=== PATIENT | male | born 1950 | race Caucasian/White ===

== ENCOUNTER 2016-07-28 06:17 | Day surgery (SDC) | payer BC ==
[2016-07-25 14:49] VITALS: BMI 28.5
[2016-07-28 06:47] LABS: URINE APPEARANCE CLEAR; URINE BILIRUBIN NEGATIVE (NEGATIVE); URINE BLOOD NEGATIVE (NEGATIVE); URINE COLOR LTYELLOW; URINE GLUCOSE (UA) NEGATIVE (NEGATIVE); URINE KETONE NEGATIVE (NEGATIVE); URINE LEUK ESTERASE NEGATIVE (NEGATIVE); URINE NITRITE NEGATIVE (NEGATIVE); URINE PROTEIN NEGATIVE (NEGATIVE); URINE UROBILINOGEN NEGATIVE E.U./dl (0.2-1.0)
[2016-07-28 06:54] LABS: INR 1.05 (0.82-1.09); PROTHROMBIN TIME (PATIENT) 11.6 SEC (9.98-11.88)
[2016-07-28] MEDS ORDERED: ROPIVACAINE HCL 0.5% 30ML VIAL ONE (07:28)
[2016-07-28] MEDS ORDERED: MIDAZOLAM HCL 2 MG/2 ML SINGLE DOSE VIAL ONE ×2 (07:30)
[2016-07-28] MEDS ORDERED: PROPOFOL 20 ML ONE ×2 (07:45)
[2016-07-28] MEDS ORDERED: SUCCINYLCHOLINE CHLORIDE 200 MG/10 ML VIAL ONE (07:45)
[2016-07-28] MEDS ORDERED: ROCURONIUM BROMIDE 50 MG/5 ML VIAL ONE (07:45)
[2016-07-28] MEDS ORDERED: LIDOCAINE HCL/PF 2% SDV 5ML VIAL ONE (07:47)
[2016-07-28] MEDS ORDERED: ceFAZolin SODIUM 1 GM VIAL ONE ×2 (07:47→08:57)
--- NOTE | 2016-07-28 08:02 | HP ---
Satellite [facility] - Chief Complaint Chief Complaint: right shoulder pain - Past Medical History Allergies/Adverse Reactions: Allergies Allergy/AdvReac Type Severity Reaction Status Date / Time No Known Drug Allergies Allergy Verified 07/28/16 06:58 - Current Medications Current Medications: Home Medications Medication Instructions Recorded Meloxicam [Mobic -] 15 mg PO DAILY 10/04/13 Multivit-Min/FA/Lycopene/Lut 1 each PO DAILY 10/04/13 [Centrum Silver Tablet] Psyllium Seed [Metamucil] 660 gm PO DAILY 10/04/13 Lisinopril 10 mg PO DAILY 07/25/16 Omeprazole 20 mg PO DAILY 07/25/16 Satellite Physical Exam - Physical Examination Vital Signs: Vital Signs Period Temp Pulse Resp BP Sys/[place]ves Pulse Ox Last 24 Hr 97.4 F 63 18 149/86 98 General Appearance: Well Nourished, Well Developed, Alert & Oriented x3 ENT: Clear Lung: Normal air movement Heart: Regular rate & rhythm Extremities: Other (right shoulder- + ttp, decr rom, + neer, + seo, + empty can, nvi MRI + rct) Neurological: Intact, Alert, Oriented Satellite Impression/Plan - Impression/Plan Impression: right shoulder rct Operative Procedure: right shoulder arthroscopy with RCR, SAD Date to be Performed: 07/28/16
[2016-07-28] MEDS ORDERED: ONDANSETRON 4 MG/2 ML VIAL IVPUSH PRN (08:21)
[2016-07-28] MEDS ORDERED: PROMETHAZINE HCL 25 MG/1 ML VIAL IVPUSH PRN (08:21)
[2016-07-28] MEDS ORDERED: LACTATED RINGERS SOLUTION 1,000 ML IV SCH (08:30)
[2016-07-28] MEDS ORDERED: ceFAZolin SODIUM 1 GM VIAL IVPB ONE (08:49)
[2016-07-28] MEDS ORDERED: PHENYLEPHRINE HCL 10 MG/1 ML SINGLE DOSE VIAL ONE (08:57)
[2016-07-28] MEDS ORDERED: DEXAMETHASONE SOD PHOSPHATE 4 MG/1 ML VIAL ONE (09:08)
[2016-07-28] MEDS ORDERED: NEOSTIGMINE METHYLSULFATE 0.5 MG/ML - 10 ML MDV ONE (10:01)
[2016-07-28] MEDS ORDERED: GLYCOPYRROLATE 0.2 MG/1 ML VIAL ONE (10:02)
--- NOTE | 2016-07-28 10:07 | OP ---
Operative Note - Note: Operative Date: 07/28/16 Pre-Operative Diagnosis: right shoulder impingement, adhesive capsulitis, RTC tear, labral tear Operation: right shoulder arthroscopy, decompression, manipulation under anesthesia, arthroscopic RTC repair, labral repair Implants: 2 x Arthrex Push lock and 1 x Swivel lock anchors, fiber wire x 4 Surgeon: Giovanni Kruse Belt Builder Helper: Kobe Vogt Anesthesiologist/SPORTS REPORTER: Natalia Cooper Anesthesia: General, Local Estimated Blood Loss (mls): 0 Blood Volume Replaced (mls): 0 Fluid Volume Replaced (mls): 1,000 Operative Report Dictated: Yes
[2016-07-28 11:10] VITALS: TEMP 97.9
--- NOTE | 2016-07-28 14:08 | OP ---
DATE OF OPERATION: 07/28/2016 PREOPERATIVE DIAGNOSIS: Right shoulder subacromial impingement, adhesive capsulitis, and rotator cuff tear. POSTOPERATIVE DIAGNOSIS: Right shoulder subacromial impingement, adhesive capsulitis, and rotator cuff tear, plus labral tear PROCEDURE: Right shoulder arthroscopy, subacromial decompression, manipulation under anesthesia, arthroscopic labral repair, and arthroscopic rotator cuff repair. SURGEON: Percy Gilliam MD AIR QUALITY CONSULTANT: HARIS Salguero TRAUMA COORDINATOR: Natalia Cooper CRNA ANESTHESIA: Right interscalene block and LMA anesthesia. DRAINS: None. COMPLICATIONS: None. SPECIMENS: None. BLOOD LOSS: Minimal. BLOOD GIVEN: None. FLUID REPLACEMENT: 1000 mL. DESCRIPTION OF PROCEDURE: This patient is a 66-year-old male with a preoperative diagnosis of a right shoulder impingement syndrome, adhesive capsulitis, and rotator cuff tear. After understanding the potential risks, complications, alternatives, and benefits of the surgery vs. non-surgical treatment, the patient elected to undergo this procedure. The patient was brought to the operating room, peripheral IV placed, and IV sedation was given. One gram of IV Ancef was given. Right interscalene block was performed. LMA anesthesia was induced. Ample padding was placed throughout. He was placed into the beach-chair position. The right upper extremity was first manipulated. At first, I was only able to get him to forward flexion to 120 degrees, abduction 90 degrees, external rotation 0 degrees. We were able to increase all significantly, forward flexion to about 150 degrees, abduction to 120 degrees, and external rotation to 40 degrees. Next the right upper extremity was prepped and draped in sterile fashion. The bony landmarks were marked out with a marking pen. Posterior portal was established. A diagnostic glenohumeral arthroscopy was performed. Patient was seen to have some intraarticular synovitis as well as frayed anterior labrum, which looked torn completely off the bone from 12 o'clock to 3 o'clock position. Therefore, an anterior portal was established under direct visualization using the spinal needle. A No. 10 scalpel blade and a green cannula were introduced into the joint. Labrum was probed, and indeed, he had a large tear from the 12 o'clock to the 3 o'clock position. An arthroscopic labral repair was done in the standard fashion. First I used a arun to peel the labrum off the scarred down portion under the glenoid, then used a rasp to roughen up the bone, then, used a shaver to remove debris. In a standard fashion, 2 push-lock anchors were used with the FiberStick and the 90-degree lasso. Photographs were taken after showing 2 push-lock anchors holding the labrum down. I then probed it; it was seen to be much more stable. Next, out attention turned to the subacromial space. Under direct visualization, lateral portal was established using a spinal needle. A No. 11 scalpel blade and green cannula was introduced into the subacromial space. Patient had a tremendous amount of inflammatory bursitis. An ArthroCare Wand was utilized to do an extensive debridement arthroscopic bursectomy to expose very large anterior acromial spur as well as what looked to be a small crescent-shaped tear at the insertion of the supraspinatus. Next, the 5.5-mm oval colette was used to do a bony decompression, and then, the shaver and the colette in reverse was used to fine tune it and smooth it out and remove all bony debris. After the bursectomy on the top surface of the rotator cuff, we put the arm through a full range of motion, and as mentioned, the small crescent-shaped tear was in the posterior insertion of the supraspinatus. The Scorpio Suture Passer was used to pass through 2 FiberWire sutures. These were threaded through a SwiveLock anchor, and the SwiveLock anchor was put down into the humeral head in a standard fashion. Those tails were cut. The rotator cuff tear was then directly visualized. It was seen to be closed down and onto the humeral head, and the arm was put through a full range of motion, and the rotator cuff moved as humeral head. The entire area was copiously irrigated and washed out. All arthroscopic portals were closed with 3-0 nylon sutures. The area was then washed and dried, covered with Aquacel, and put into a shoulder immobilizer. He was extubated and brought down out of the beach-chair position. There were no complications during the case. Blood loss was quite minimal. Total operative time was about 55 minutes. There were no complications during the case. Patient tolerated the procedure well and was brought to the ambulatory recovery room in stable condition. Gerard BARNES/[id number]
[2016-07-28 14:10] VITALS: BP 129/74; PULSE 58
--- NOTE | 2016-07-29 16:02 | PATH ---
Surgical Pathology Report Patient Name: MAYNOR KELLEY [facility]. Rec. #: [id number] /Age/Gender: 1950 (Age: 66) / M Account: [id number] Location: [facility] SURGICAL Taken: 07/28/2016 Received: 07/28/2016 Reported: 07/29/2016 Physicians: Giovanni Kruse M.D. Specimen(s) Received SHAVINGS RIGHT SHOULDER Clinical History Right shoulder tear Final Diagnosis SHOULDER, RIGHT, ARTHROSCOPIC SHAVINGS: FIBROCARTILAGINOUS TISSUE AND SKELETAL MUSCLE. Electronically Signed Jocelyn Wilkerson M.D. Gross Description Received in formalin, labeled "right shoulder shavings," is a 6.5 x 5.5 x 1.0 cm. aggregate of ray-yellow soft tissue fragments. A service support representative portion is submitted in one cassette. /07/28/2016 saudi07/28/2016
== END 2016-07-28 13:30 | disposition home or self-care (01) ==
LOC: JASU-SURG 06:17
PROVIDERS: ATTEND Orthopaedic Surgery
PROC: 0LB14ZZ Excision of Right Shoulder Tendon, Percutaneous Endoscopic Approach (ICD-10-PCS; principal; 2016-07-28 08:00)
PROC: 0RNJ4ZZ Release Right Shoulder Joint, Percutaneous Endoscopic Approach (ICD-10-PCS; 2016-07-28 08:00)
PROC: 0RQJ4ZZ Repair Right Shoulder Joint, Percutaneous Endoscopic Approach (ICD-10-PCS; 2016-07-28 08:00)
PROC: 7W07X9Z Osteopathic Treatment of Upper Extremities using Other Method (ICD-10-PCS; 2016-07-28 08:00)
DX: M75.101 Unspecified rotator cuff tear or rupture of right shoulder, not specified as traumatic (principal); M75.41 Impingement syndrome of right shoulder; M75.01 Adhesive capsulitis of right shoulder; S43.491A Other sprain of right shoulder joint, initial encounter; X58.XXXA Exposure to other specified factors, initial encounter; Y93.9 Activity, unspecified; Y92.9 Unspecified place or not applicable
CPT/HCPCS: 36415; 81003; 85610; 88304-TC; 94760

== ENCOUNTER 2017-03-23 07:26 | Day surgery (SDC) | payer BC ==
[2017-03-20 12:17] VITALS: BMI 29.0
[2017-03-23] MEDS ORDERED: PROPOFOL 20 ML ONE ×2 (07:28)
[2017-03-23 07:47] VITALS: TEMP 97.8
[2017-03-23] MEDS ORDERED: LIDOCAINE HCL/PF 2% SDV 5ML VIAL ONE (07:49)
[2017-03-23 09:43] VITALS: BP 111/65; PULSE 84
--- NOTE | 2017-03-27 15:42 | PATH ---
Surgical Pathology Report Patient Name: MAYNOR KELLEY [facility]. Rec. #: [id number] /Age/Gender: 1950 (Age: 66) / M Account: [id number] Location[facility] Taken: 03/23/2017 Received: 03/23/2017 Reported: 03/27/2017 Physicians: Harshil Queen M.D. Specimen(s) Received A: BX DUODENUM B: BX ANTRUM Clinical History Anemia Rule out colon cancer, history of polyps Rule out celiac disease, rule out H. Pylori Final Diagnosis A. DUODENUM, BIOPSY: DUODENAL MUCOSA WITH NO PATHOLOGIC FINDINGS. Note: Features suggestive of celiac disease are not identified in this biopsy. B. ANTRUM, BIOPSY: MILD CHRONIC GASTRITIS. IMMUNOSTAIN IS NEGATIVE FOR H. PYLORI ORGANISMS. Electronically Signed Jocelyn Wilkerson M.D. Gross Description A. Received in formalin, labeled "duodenum" are 2 ray, irregular portions of soft tissue measuring 0.1 and 0.2 cm. in greatest dimension. The specimens are submitted in toto in one cassette. B. Received in formalin, labeled "antrum" are 2 ray, irregular portions of soft tissue averaging 0.3 cm. in greatest dimension. The specimens are submitted in toto in one cassette. 03/24/201703/24/2017
== END 2017-03-23 09:35 | disposition home or self-care (01) ==
LOC: FASU-ENDO 07:26
PROVIDERS: ATTEND Internal Medicine Gastroenterology
PROC: 0DJD8ZZ Inspection of Lower Intestinal Tract, Via Natural or Artificial Opening Endoscopic (ICD-10-PCS; principal; 2017-03-23 08:39)
DX: Z86.010 Personal history of colon polyps (principal); R19.5 Other fecal abnormalities; K57.30 Diverticulosis of large intestine without perforation or abscess without bleeding
CPT/HCPCS: 88305-TC; 88342-TC